=== PATIENT | female | born 1940 | race Caucasian/White ===

== ENCOUNTER 2018-05-19 23:53 | Inpatient (IN) | payer OTHER ==
[~2018-05-19] VITALS: Ht 157.5 cm; Wt 80.7 kg
[~2018-05-19 23:53] MED LIST: ASA81 MG PO; CATAPRES0.3 MG PO; CELEBREX100 MG PO; DILTIAZEM ER240 M1 PO; HYZAAR 100-121 UDTAB PO; IMDUR30 MG PO; LANTUS100 U/ML SQ; NABUMETONE750 MG PO; NEURONTIN300 MG PO; SYNTHROID150 MCG PO; XALATAN; [UNRECOGNIZED DRUG - OTHER] PO
[2018-05-20] MEDS ORDERED: TRAMADOL HCL7.5 GM (00:12)
[2018-05-20] MEDS ORDERED: SINGULAIR5 MG (00:12)
[2018-05-20] MEDS ORDERED: PROVENTIL HFA6.7 GM (00:13)
== END 2018-05-24 12:31 | disposition home or self-care (01) | DRG 603 ==
LOC: ER 23:53 → MEDI 05-20 18:28 → SEC-K 05-20 18:28 → MEDI 05-20 19:47
PROC: B44HZZZ Ultrasonography of Bilateral Lower Extremity Arteries (ICD-10-PCS; principal; 2018-05-20)
PROC: B54DZZZ Ultrasonography of Bilateral Lower Extremity Veins (ICD-10-PCS; 2018-05-20)
PROC: 3E0F7GC Introduction of Other Therapeutic Substance into Respiratory Tract, Via Natural or Artificial Opening (ICD-10-PCS; 2018-05-22)
DX: L03.116 Cellulitis of left lower limb (principal); N17.8 Other acute kidney failure; L03.115 Cellulitis of right lower limb; I10 Essential (primary) hypertension; E03.8 Other specified hypothyroidism; E11.9 Type 2 diabetes mellitus without complications; I87.2 Venous insufficiency (chronic) (peripheral); I70.293 Other atherosclerosis of native arteries of extremities, bilateral legs